=== PATIENT | male | born 1975 | race Two or more races ===

== ENCOUNTER 2020-12-22 13:11 | Outpatient (REF) | payer OTHER, SELFPAY ==
[2020-12-22 13:41] LABS: COVID-19 Test Negative (Negative)
== END 2020-12-22 13:12 | disposition home or self-care (01) ==
LOC: HO.LAB 13:11
PROVIDERS: Visit Provider Internal Medicine
DX: Z20.822 Contact with and (suspected) exposure to COVID-19 (principal)
CPT/HCPCS: 36415; 87635; C9803

== ENCOUNTER 2023-04-18 10:47 | Emergency (ER) | payer OTHER, SELFPAY ==
--- NOTE | ~2023-04-18 | XR_ITS ---
EXAMINATION: XR CERVICAL SPINE CLINICAL INFORMATION: Neck pain radiating to hand. COMPARISON: 02/23/2016 TECHNIQUE: 4 views of the cervical spine were obtained. FINDINGS: The cervical spine is imaged through the C7 vertebral body. Relative straightening of the cervical lordosis. There is 2 mm retrolisthesis of C3 on C4 and of C5 on C6. Vertebral body heights are maintained. Moderate intervertebral disc space narrowing and C3-C4 and C5-C6. Lateral masses are symmetric. Prevertebral soft tissues are within normal limits. XR/XR cervical spine 4V IMPRESSION: Moderate degenerative disc disease C3-C4 and C5-C6.
--- NOTE | ~2023-04-18 | XR_ITS ---
EXAMINATION: XR HUMERUS, LEFT CLINICAL INFORMATION: Pain. COMPARISON: None available. TECHNIQUE: AP and lateral views of the left humerus. FINDINGS: Nkgg-bc-htmzacvn acromioclavicular osteoarthritis is characterized by nonuniform joint space narrowing and marginal osteophytes. There is more mild glenohumeral osteoarthritis with small glenoid osteophytes. No fracture or malalignment. The humerus is intact. No fractures or stress reactions. No osseous lesions. No foci of calcific tendinitis are identified. XR/XR humerus LT IMPRESSION: 1. Rqby-gk-twqirnev acromioclavicular and more mild glenohumeral osteoarthritis. 2. No acute osseous findings.
[2023-04-18 11:10] VITALS: BP 154/109; PULSE 92; RESP 18; TEMP 36.5; O2SAT 98; BMI 29.3
--- NOTE | 2023-04-18 11:13 | ED_ITS ---
HPI - Extremity Problem General Chief complaint: Extremity Injury, Upper Stated complaint: l arm pain Time Seen by Provider: 04/18/23 15:43 Source: patient Mode of arrival: ambulatory Limitations: no limitations History of Present Illness HPI Narrative: This is a 47-year-old male presenting to the emergency department with pain to left arm for the past 3 months worsening, patient contributes this to getting all his 3 COVID boosters in the same arm. Reports pain is 8/10, goes from knee neck and radiates down to left arm. Intermittent numbness and tingling of the left upper extremity. Patient reports pain is so severe sometimes he can not sleep. Thinks that pain starts in the neck with goes down to his left. No chest pain, shortness of breath, fevers, chills, nausea, vomiting, abdominal pain. Related Data Previous Rx's Medication Instructions Recorded cyclobenzaprine 10 mg tablet 10 mg PO BEDTIME PRN muscle spasm 04/18/23 #7 tabs lidocaine 5 % topical patch 1 patch topical DAILY PRN pain #15 04/18/23 ea Allergies Allergy/AdvReac Type Severity Reaction Status Date / Time pineapple [PINEAPPLE] Allergy Unknown UNKNOWN Unverified 04/24/20 14:53 Review of Systems Review of Systems: Constitutional : No Weight loss, No Fever, No Chills, No Fatigue, No Malaise ENT/Mouth : No sore throat, No Rhinorrhea Eyes: No Eye Pain, No Swelling, No Redness Cardiovascular : No Chest Pain, No SOB, No Dyspnea on Exertion, No Orthopnea, No Edema, No Palpitations Respiratory : No Cough, No Sputum, No Wheezing Gastrointestinal : No Nausea, No Vomiting, No Diarrhea, No Constipation, No abdominal Pain, No Hematochezia, No Melena Genitourinary : No Dysuria, No Urinary Frequency, No Hematuria, Musculoskeletal : No joint pain, No Myalgias, No Joint Swelling, + neck pain Skin : No Skin Lesions, No rash Neuro : No Weakness, No Numbness, No Dizziness, No Headache Psych : No Anxiety/Panic, No Depression All other systems reviewed and are negative Yes all other systems are reviewed and are negative [facility] Past Medical History Attestation statement: The following information was validated with the patient. Source: old records reviewed and nursing notes reviewed Social History Social History Advance Directives: No Advance Directives Information Provided: Yes Physical Exam Vital Signs: Vital Signs: Last Vital Signs Temp 97.7 F 04/18/23 11:10 Pulse 92 04/18/23 11:10 Resp 18 04/18/23 11:10 BP 154/109 H 04/18/23 11:10 Pulse Ox 98 04/18/23 11:10 O2 Del Method Room Air 04/18/23 11:10 BMI result Body Mass Index 29.3 vss Appearance: Alert.? Oriented X3.? No acute distress.? Head: Normocephalic, atraumatic, no step-offs or deformities Eyes: Pupils equal, round and reactive to light.? Neck: Normal inspection.? Neck supple.?+ Left-sided cervical paraspinous muscle tenderness on palpation. CVS: Normal heart rate and rhythm.? Pulses normal.? Respiratory: No respiratory distress.? Breath sounds normal.? Abdomen: Soft and nontender.? Skin: Skin warm and dry.? Normal skin color.? Normal skin turgor.? Extremities: No lower extremity edema.? No calf ttp. 5/5 strength to bilateral upper and lower extremities . Normal hand poured concrete wall technician bilaterally. Negative Romberg and pronator drift. Normal sensation distally. 2+ radial pulses equal bilateral. No wrist drop. Capillary refill less than 2 seconds to bilateral upper extremity digits. Back: No midline tenderness, no C-spine tenderness, full range of motion, no CVA tenderness bilaterally Neuro: Oriented X 3.? No motor deficit.? No sensory deficit. CN 2-12 intact Course Course Course Narrative: RME - 47 y/o male presenting to the ER for evaluation of left upper arm pain for the last 3 months. He states he got all 3 COVID boosters in his left arm and he has had pain in the upper arm since. The pain is 8/10, radiates down into the hand w/ numbness and tingling. not sleeping due to the pain. +neck pain as well. No shoulder pain. XR: x-rays, eval in [facility] Reevaluation(s) Reevaluation #1: x-ray of left humerus with mild to moderate AC and more than mild glenohumeral are steer throat is. . No acute osseous findings. X-ray of cervical spine with moderate degenerative disc disease C3-C4 and C5-C6. Patient to be discharged home with muscle relaxers, Lidoderm patch. Educated on ibuprofen and Tylenol. Educated patient on diagnosis and treatment plan, answered all question, patient verbalizes understanding. At this time patient will be discharged home, advised to return with new or worsening symptoms. Educated on worrisome signs and symptoms and when to return. At this time I feel comfortable discharge home. Time: 15:58 Medical Decision Making Medical Decision Making [facility] Narrative: 1556 47-year-old male presents with left-sided neck pain radiating to left upper extremity with intermittent numbness and tingling contributes this to the COVID vaccine. Physical exam With left-sided cervical paraspinous muscle tenderness on palpation. Concerns for cervical radiculopathy versus spinal stenosis versus nerve impingement versus shoulder sprain/ strain. No signs of cervical myelopathy, cord compression, neurovascular compromise, threat to [place]. Unlikely atypical presentation of ACS no chest pain or shortness of breath and patient without significant risk factors. Plan at this time x-ray was ordered from triage. Differential Diagnosis Differential Diagnoses: The differential diagnosis associated with the presentation includes Concerns for cervical radiculopathy versus spinal stenosis versus nerve impingement versus shoulder sprain/ strain. No signs of cervical myelopathy, cord compression, neurovascular compromise, threat to [place]. Unlikely atypical presentation of ACS no chest pain or shortness of breath and patient without significant risk factors. Admission/Observation Consideration of admission/observation: Escalation of care including admission/observation considered unlikely Lab Data [facility] Lab Attestation statement: I reviewed the patient's lab results. Independent Interpretation I performed an independent interpretation of an: Plain X-Ray ( XR/XR humerus LT IMPRESSION: 1. Fnql-rg-auqjcucf acromioclavicular and more mild glenohumeral osteoarthritis. 2. No acute osseous findings. ) Radiology Impression Discussion of test interpretation with radiology: I have reviewed the radiologist's reading. Critical Care Time Critical Care Time Critical Care Time: No Discharge Plan Discharge Clinical Impression: Arm pain, left, Arthritis of shoulder Patient Disposition: Home, Self-Care Instructions: Arm Pain (ED), Swollen Shoulder Joint (ED) Additional Instructions: Take your medications as prescribed. If you were prescribed antibiotics today, it is important that you take your medication to their entirety, do not skip any doses, do not finish them early. Follow-up with your primary care provider this week. Return to the emergency department with new or worsening symptoms. Such as fevers, chills, chest pain, shortness of breath, nausea, vomiting, dizziness, headache, vision changes, lethargy In case of emergency call 911 Apply warm compresses to the area. Ibuprofen every 6 hours, Tylenol every 4 as needed for pain or discomfort. Prescriptions: New cyclobenzaprine 10 mg tablet 10 mg PO BEDTIME PRN (Reason: muscle spasm) Qty: 7 0RF lidocaine 5 % adhesive patch,medicated 1 patch topical DAILY PRN (Reason: pain) Qty: 15 0RF Rx Instructions: leave on most painful area for up to 12 hrs Referrals: Physician,None [Primary Care Provider] - 2 days Stand Alone Forms: Work/School Release
== END 2023-04-18 16:20 | disposition home or self-care (01) ==
PROVIDERS: Emergency Provider Emergency Medicine
DX: M19.012 Primary osteoarthritis, left shoulder (principal); M54.2 Cervicalgia; M25.512 Pain in left shoulder; Z79.899 Other long term (current) drug therapy
CPT/HCPCS: 72050; 73060; 99282; 99283

== ENCOUNTER 2024-08-08 14:22 | Emergency (ER) | payer MEDICARE, SELFPAY ==
[2024-08-08] VITALS (7 sets, daily range): BP systolic 153–186; BP diastolic 94–116; PULSE 76–90; RESP 16–22; TEMP 36.7–36.9; O2SAT 95–100; BMI 28.9
--- NOTE | ~2024-08-08 | CT_ITS ---
CLINICAL HISTORY: pain SBO? CT abdomen and pelvis with contrast Comparison: US - US ABDOMEN LIMITED - 08/08/24 16:[address] - ABD PELVIS WITH CONT 54216 - 02/05/13 23:53 EDT Findings: No consolidation at the lung bases. Unremarkable gallbladder and bladder. Left renal subcentimeter low attenuating lesions which are too small to characterize. The other solid organs are unremarkable. No bowel wall thickening or dilation. A normal appendix is identified. No aneurysm. Mild to moderate calcified atherosclerotic disease. Infrarenal inferior vena cava filter No lymphadenopathy. No ascites. No acute osseous abnormality. Grade 1 anterolisthesis of L5 on S1 secondary to bilateral pars defects. Impression: No acute findings. No small bowel obstruction. This document has been electronically signed by: Heidi Quevedo MD on 08/08/2024 21:44:07
--- NOTE | ~2024-08-08 | US_ITS ---
CLINICAL HISTORY: RUQ pain US GALLBLADDER Comparison: None Findings: The common bile duct measures 4.3 mm. No gallbladder stones or sludge. No gallbladder wall thickening or pericholecystic fluid. There is no sonographic Tran sign. IMPRESSION: 1. No cholelithiasis, acute cholecystitis or common bile ductal dilatation. This document has been electronically signed by: Paola Dutton DO on 08/08/2024 16:58:42
--- OUTSIDE RECORDS SUMMARY | 2024-08-08 14:24 | XMS_ITS | Data Portability ---
Author Organization [place] [facility] [place], [place] - [facility] Address [address] [place] [phone] Care Team Providers Care Mortar Carrier Name Role Phone [facility] Primary Care Provider [phone] HIM [facility] OTHER Assessment No assessment recorded. Plan of Treatment Reminders Order Date Submit Date Provider Last Modified By Organization Details Last Modified Time Details Appointments None recorded. Lab rapid flu (A+B) 2023 [facility], [address] [place] [address], [id number], 4 21:28:18 rapid SARS CoV 2 Ag, QL IA, respiratory specimen 2023 [facility], [address] [place] [address], [id number], 4 21:28:36 Referral None recorded. Procedures None recorded. Surgeries None recorded. Imaging None recorded. Medication Orders albuterol sulfate HFA 90 mcg/actuati on aerosol inhaler 2023 [place] [id number], [address], [place], [phone], 17:18:11 Patient TargetsNo targets recorded. Patient InstructionsNo instructions recorded. Reason for Referral None Reported. Results Created Date Observation Date Name Description Value Unit Range Abnormal Flag Note LastModifiedBy Organization Detail LastModifiedTime Result Notes None recorded. Medical Equipment None Reported. Allergies No known drug allergies Medications Name Sig Start Date Stop Date Status Note LastModified by Organization Details LastModified Time amoxicillin 500 mg capsule TAKE ONE CAPSULE BY MOUTH THREE TIMES DAILY FOR 7 DAYS active Not Available Not Available No t Available albuterol sulfate HFA 90 mcg/actuation aerosol inhaler INHALE 2 PUFFS BY MOUTH EVERY 4 HOURS NEEDED FOR COUGH OR WHEEZING OR SHORTNESS OF BREATH active Not Available Not Available No t Available Vitals Date Recorded Body temperature Respiratory rate Body height Heart rate Body weight Oxygen saturation Oxygen saturation in Arterial blood by Pulse oximetry Systolic blood pressure Diastolic blood pressure Provider Name and Address Organization Details Last Updated DateTime 98 [degF] 14 /min 177.8 cm 86 /min 95764.6 g 99 % 99 % 159 mm[Hg] 92 mm[Hg] Not Available [facility] - production 16:56:46 Social History None recorded. Functional Status None recorded. Mental Status None recorded. Family History Nothing Reported. Medical History No medical history recorded. Past Encounters Encounter ID Performer Location Encounter Start Date Encounter Closed Date Diagnosis/Indication Diagnosis SNOMED-CT Code Diagnosis ICD10 Code [id number] Cayla Stewart MD Main - [facility] [address] [place] [phone] 06/19/2024 16:56:43 06/19/2024 18:58:57 Viral upper respiratory tract infection 036271996 J06.9 Health Concerns Section Related Observation LastModified by Organization Detai ls LastModified Time None Recorded Concern Status LastModified by Organization Details LastModified Time None Recorded Advance Directives Directive None Recorded Payers Encounter Date Sequence Insurance Name Policy Number Policy Gil[place] Covered Member ID Gillette Member ID Guarantor Name 06/19/2024 1 [facility] - DOS ON OR AFTER 2022 - DUAL ELIGIBLE - DETENTION OPTIONS AND ONE CARE (MEDICARE REPLACEMENT/ADV ANTAGE - HMO) Farrukh Shelton [id number] Farrukh Shelton Notes Date Note Type Note Provider Name and Address Organization Details Recorded Time 06/19/2024 text/html [facility] Nurse Triage Notes (Marya Espitia): Reason For Request: Pt reporting just having [facility] nurse at this home and is requesting an asthma pump and inhaler>experiencing SOB>[facility] does not have a PCP, on a waiting list and notes not having a asthma inhaler>[facility] nurse noted the pt had elevated BP this morning Chief Complaints: Asthma PMH: Asthma, Post-Traumatic Stress Disorder (PTSD) Comments: Patient calling in to place a referral, identified via name and . Patient with a few month history of sob, on/off blurry vision and numbness/tingling to his left arm from arthritis in his neck. Patient had a visiting nurse from [facility] come this morning, he was noted to be hypertensive on exam with no history of HTN, BP 162/100 and 164/106, he denies any chest pain, no left jaw, neck, shoulder or arm pain, no unilateral weakness, or worsening numbness/tingling. He denies any headache or dizziness, no n/v, +cough, no phlegm or congestion, noted to have a raspy voice. He states he uses an albuterol inhaler 2-3c a month, however, has been out of his inhaler for a few months, but is currently on a wait list for a new PCP, therefore, has no refills. He would like to be evaluated. Project Management Advisor Organization Information for Daquan Crawford [employer] Name: [facility] Address: [address] [place] [address], [place] [address], Hat Blocker: Jose M Irwin MD [facility] No.: [id number] Project Management Advisor POC Test Results from Daquan Crawford Rapid COVID antigen (16:51:10) COVID: - Rapid influenza antigen (16:51:11) Flu: - .................... .................... .................... .................... .................... .................... .................... . Project Management Advisor Note From Daquan Crawford: Patient alert and oriented answers the door. Patient complains of cold symptoms starting yesterday. Patient complains of nasal congestion, frequent nonproductive cough. Patient states he? s had asthma in the past, has used albuterol inhaler with positive relief. Patient states he does not have an albuterol inhaler at this time and requests a refill from us. Patient states he has also used Advair in the past but discontinued on the advice of his PCP years ago. Patient denies headache, difficulty breathing, nausea, vomiting, diarrhea abdominal pain or any other pain or complaint. Patient reports normal intake and elimination.Patient pink warm dry secondary exam unremarkable. Positive full sentences negative increase work of breathing. Lung sounds clear in all martinez. Abdomen soft nontender negative edema. [facility] will order albuterol inhaler to patient? s local pharmacy. Patient declines offer of albuterol nebulizer at this time.Red flags and patient education discussed. Supportive care next steps and what to expect to discuss. Patient demonstrates understanding of care and plan.Consent uploaded. Patient confirms NKDA. .................... .................... .................... .................... .................... .................... .................... . [facility] Consulted: Cayla Stewart .................... .................... .................... .................... .................... .................... .................... . Disposition: Cheyenne Stewart MD [address] [facility],[address], [place], [phone], [employer] - Confer 06/19/2024 17:37:10
--- OUTSIDE RECORDS SUMMARY | 2024-08-08 14:25 | XMS_ITS | Continuity of Care Document ---
Author Organization [place] [employer] [place], [place] - [facility] Address [address] [place] [phone] Care Team Providers Care Air Pollution Specialist Name Role Phone [facility] Primary Care Provider [facility] OTHER Assessment No assessment recorded. Plan of Treatment Reminders Order Date Submit Date Provider Last Modified By Organization Details Last Modified Time Details Appointments None recorded. Lab rapid flu (A+B) 2023 [facility], [address] [place] [address], [id number], 4 21:28:18 rapid SARS CoV 2 Ag, QL IA, respiratory specimen 2023 [facility], [address] [place] [address], [id number], 4 21:28:36 Referral None recorded. Procedures None recorded. Surgeries None recorded. Imaging None recorded. Medication Orders albuterol sulfate HFA 90 mcg/actuati on aerosol inhaler 2023 [place] [id number], [address], [place], [phone], 17:18:11 Patient TargetsNo targets recorded. Patient InstructionsNo [...] [degF] 14 /min 177.8 cm 86 /min 67028.6 g 99 % 99 % 159 mm[Hg] 92 mm[Hg] Not Available [facility] - production 4 16:56:46 Social History None recorded. Functional Status None recorded. Mental Status None recorded. Family History Nothing Reported. Medical History No medical history recorded. Past Encounters Encounter ID Performer Location Encounter Start Date Encounter Closed Date Diagnosis/Indication Diagnosis SNOMED-CT Code Diagnosis ICD10 Code [id number] Cayla Stewart MD Main - [facility] [address] [place] [phone] 06/19/2024 16:56:43 06/19/2024 18:58:57 Viral upper respiratory tract infection [id number] J06.9 Health Concerns Section Related Observation LastModified by Organization Detai ls LastModified Time None Recorded Concern Status LastModified by Organization Details LastModified Time None Recorded Payers Encounter Date Sequence Insurance Name Policy Number Policy Gil[place] Covered Member ID [place] Member ID Guarantor Name 06/19/2024 1 [facility] - DOS ON OR AFTER 2022 - DUAL ELIGIBLE - FDC OPTIONS AND ONE CARE (MEDICARE REPLACEMENT/ADV ANTAGE - HMO) Farrukh Shelton [id number] Farrukh Shelton Notes Date Note Type Note [...] neck. Patient had a visiting nurse from [facility] come this morning, he was noted to [...] refills. He would like to be evaluated. Cemetery Counselor Organization Information for Daquan Crawford [employer] Legal Name: [facility] Address: [address] [place] [address], [place] [address], Bobbin Collector: Jose M Irwin MD [place] No.: [id number] Cemetery Counselor POC Test Results from Daquan Crawford Rapid COVID antigen (16:51:10) COVID: - Rapid influenza antigen (16:51:11) Flu: - .................... .................... .................... .................... .................... .................... .................... . Cemetery Counselor Note From Ty Daquan: Patient alert and oriented answers the door. [...] all martinez. Abdomen soft nontender negative edema. [facility] [place] albuterol inhaler to patient? s local pharmacy. Patient declines offer of albuterol nebulizer at this time.Red flags and patient education discussed. Supportive care next steps and what to expect to discuss. Patient demonstrates understanding of care and plan.Consent uploaded. Patient confirms NKDA. .................... .................... .................... .................... .................... .................... .................... . [facility] Consulted: Cayla Stewart .................... .................... .................... .................... .................... .................... .................... . Disposition: Cheyenne Stewart MD [address] [facility],[address], [place], [phone], [employer] 06/19/2024 17:37:10
--- NOTE | 2024-08-08 14:55 | ED_ITS ---
HPI - General Adult General Chief complaint: Abdominal Pain Stated complaint: nausea abd pain Time Seen by Provider: 08/08/24 18:18 Source: patient Limitations: language barrier History of Present Illness ED Provider: Ernestina Rodriguez PA-C HPI narrative: 49-year-old male presents with right sided abdominal discomfort x3 days. Pain severe unable to describe is nonradiating. Associated abdominal distention and decreased flatus. Unclear when patient had his last true bowel movement. Associated nausea. Denies postprandial symptoms, active vomiting, diarrhea or fever. No recent cough or cold symptoms. Denies related symptoms. Related Data Previous Rx's ?Medication ?Instructions ?Recorded cyclobenzaprine 10 mg tablet 10 mg PO BEDTIME PRN muscle spasm 04/18/23 #7 tabs lidocaine 5 % topical patch 1 patch topical DAILY PRN pain #15 04/18/23 ea ondansetron HCl 4 mg tablet 4 mg PO Q8H PRN nausea and 08/08/24 vomiting #10 tabs sucralfate 100 mg/mL oral 10 ml PO QID PRN abdominal 08/08/24 suspension (Carafate) discomfort #300 mL Allergies Allergy/AdvReac Type Severity Reaction Status Date / Time pineapple [PINEAPPLE] Allergy Unknown UNKNOWN Verified 08/08/24 15:00 Review of Systems 2 Review of Systems: Yes all other systems are reviewed and are negative Constitutional: Constitutional: Denies fatigue and Denies fever(s) Cardiovascular: Cardiovascular: Denies chest pain and Denies dyspnea Respiratory: Respiratory: Denies cough and Denies dyspnea Gastrointestinal: Gastrointestinal: Reports abdominal pain, Reports constipation, Denies diarrhea, Reports nausea and Denies vomiting Genitourinary: Genitourinary: Denies dysuria Endocrine: Endocrine: Denies fatigue [facility] Past Medical History Attestation statement: The following information was validated with the patient. Social History Social History Advance Directives: No Advance Directives Information Provided: No Do you have a plan to hurt others: No Plan Physical Exam ED Vital Signs: Vital Signs - 24 hr 08/08/24 14:55 08/08/24 18:42 08/08/24 18:53 Temperature 98.4 F Pulse Rate 88 85 Respiratory Rate 20 22 H 17 Blood Pressure 172/113 H 186/116 H Pulse Oximetry 99 100 Oxygen Delivery Method Room Air Room Air 08/08/24 19:06 08/08/24 19:37 08/08/24 20:42 Temperature 98.3 F 98.1 F Pulse Rate 78 90 88 Respiratory Rate 18 18 17 Blood Pressure 179/109 H 165/94 H 159/98 H Pulse Oximetry 99 96 97 Oxygen Delivery Method Room Air Room Air Room Air BMI result Body Mass Index 28.9 Const Other: Alert, appears extremely uncomfortable ill in appearance Orientation/consciousness: patient oriented x3 Resp Effort & Inspection: normal respiratory effort Cardio Other: Normal peripheral perfusion GI Other: Right-sided abdomen with a some degree rigidity, the left is soft, subtle distention, moderate to severe tenderness to palpation with moderate involuntary guarding over right side of the abdomen Skin Other: Warm dry no rash Neuro General: patient oriented x3, no focal motor deficits and CN's II-XI intact bilaterally Psych Other: Calm cooperative Course Course Course Narrative: RME, this is a rapid medical exam performed by Jesus Mitchell please refer to primary provider for complete H&P- 49-year-old male presents for evaluation abdominal pain, nausea and vomiting for the last 3 days. Patient reports most of his pain is in the right upper quadrant, plan for labs, ultrasound of the right upper quadrant. Medications Administered Discontinued Medications Generic Name Dose Route Start Last Admin Trade Name Freq PRN Reason Stop Dose Admin Diatrizoate Meglum/Diatrizoate Sod 30 ml 08/08/24 21:14 08/08/24 21:14 Diatrizoate Meglumine, Sodium 30 Ml Solution PO 08/08/24 21:15 30 ml ONCE ONE Administration Famotidine 20 mg 08/08/24 18:18 08/08/24 18:38 Famotidine/Pf 20 Mg/2 Ml Vial IVPUSH 08/08/24 18:19 20 mg ONCE ONE Administration Sodium Chloride 500 mls @ 500 mls/hr 08/08/24 18:18 08/08/24 20:41 Ns IV 08/08/24 19:17 Infused .Q1H ONE Infusion Iohexol 100 ml 08/08/24 21:13 08/08/24 21:13 Iohexol 350 Mg/Ml 100 Ml Infus..Btl IV 08/08/24 21:14 85 ml ONCE ONE Administration Ketorolac Tromethamine 15 mg 08/08/24 18:18 08/08/24 18:38 Ketorolac Tromethamine 15 Mg/Ml Vial IVPUSH 08/08/24 18:19 15 mg ONCE ONE Administration Morphine Sulfate 8 mg 08/08/24 18:45 08/08/24 18:53 Morphine Sulfate 10 Mg/Ml Cartridge IVPUSH 08/08/24 18:46 8 mg ONCE ONE Administration Protocol Ondansetron HCl 4 mg 08/08/24 18:18 08/08/24 18:38 Ondansetron Hcl 4 Mg/2 Ml Vial IVPUSH 08/08/24 18:19 4 mg ONCE ONE Administration Medical Decision Making Medical Decision Making MDM Narrative: 49-year-old male presents with right sided abdominal discomfort x3 days. Pain severe unable to describe is nonradiating. Associated abdominal distention and decreased flatus. Unclear when patient had his last true bowel movement. Associated nausea. Denies postprandial symptoms, active vomiting, diarrhea or fever. No recent cough or cold symptoms. Denies related symptoms. I have considered the following differential diagnoses: Biliary colic, cholecystitis, gastritis, pancreatitis , bowel obstruction Plan:Given distribution of discomfort I am considering biliary versus gastric etiology as cause for symptoms. Screening labs including LFTs and lipase we will be obtained. Adding an ultrasound of the right upper quadrant. We will be giving fluids Zofran , famotidine, morphine and Toradol for his discomfort. The symptoms could be viral related as well given such illness has been prevalent within the community. Patient also with obstructive symptoms with a concerning exam, I am adding a CT of the abdomen. Screening labs including LFTs and lipase, right upper quadrant ultrasound were obtained from triage. I have independently reviewed the following tests: Labs: No leukocytosis, not anemic, no electrolyte abnormality no elevation of LFTs or lipase Ultrasound right upper quadrant:IMPRESSION: 1. No cholelithiasis, acute cholecystitis or common bile ductal dilatation. This document has been electronically signed by: Paola Dutton DO on 08/08/2024 16:58:42 CT abdomen and pelvis:Findings: No consolidation at the lung bases. Unremarkable gallbladder and bladder. Left renal subcentimeter low attenuating lesions which are too small to characterize. The other solid organs are unremarkable. No bowel wall thickening or dilation. A normal appendix is identified. No aneurysm. Mild to moderate calcified atherosclerotic disease. Infrarenal inferior vena cava filter No lymphadenopathy. No ascites. No acute osseous abnormality. Grade 1 anterolisthesis of L5 on S1 secondary to bilateral pars defects. Impression: No acute findings. No small bowel obstruction. This document has been electronically signed by: Heidi Quevedo MD on 08/08/2024 21:44:07 Patient is just constipated, he could also have underlying viral gastritis. We will send with home care insructions Lab Data 08/08/24 15:44 08/08/24 15:44 Labs: Lab Results 08/08/24 08/08/24 Range/Units 15:44 16:03 WBC 7.6 (4.8-10.8) X10*3/uL RBC 4.97 (4.60-5.80) X10*6/uL Hgb 15.7 (14.0-18.0) g/dl Hct 45.1 (42.0-52.0) % MCV 90.7 (80.0-98.0) fL MCH 31.6 (27.0-33.0) pg MCHC 34.8 (31.0-36.0) g/dl RDW 13.0 (11.0-16.0) % Plt Count 295 (160-400) X10*3/uL MPV 9.3 L (9.4-12.4) fL Immature Gran % (Auto) 0.7 H (0.0-0.4) % Neut % (Auto) 68.7 (45-73) % Lymph % (Auto) 19.3 L (20-40) % [place] % (Auto) 6.7 (2-11) % Eos % (Auto) 3.8 (0-4) % Baso % (Auto) 0.8 (0-2) % Lymph # (Auto) 1.5 (1.2-4.9) X10*3/uL [place] # (Auto) 0.5 (0.1-1.2) X10*3/uL Eos # (Auto) 0.3 (0.0-0.4) X10*3/uL Baso # (Auto) 0.1 (0.0-0.2) X10*3/uL Abs Immat Gran (auto) 0.05 H (0.00-0.03) X10*3/uL Absolute Neuts (auto) 5.2 (2.0-8.3) x10*3/uL Absolute Nucleated RBC 0.000 (0.0-0.012) X10*3/uL Nucleated RBC % (auto) 0.0 (0.0-0.2) /100WBC Sodium 138 (135-145) mmol/L Potassium 3.9 (3.3-5.1) mmol/L Chloride 103 (96-108) mmol/L Carbon Dioxide 25 (22-29) mmol/L Anion Gap 14 (12-20) BUN 14 (9-16) mg/dL Creatinine 1.02 (0.5-1.4) mg/dL Estim Creat Clear Calc 101.3 Estimated GFR > 60 Random Glucose 161 H (60-115) mg/dL Calcium 9.8 (8.4-10.2) mg/dL Total Bilirubin 0.6 (0.0-1.0) mg/dL AST 25 (5-37) U/L ALT 24 (0-40) U/L Alkaline Phosphatase 73 (39-117) U/L Total Protein 7.7 (6.5-8.0) g/dL Albumin 4.5 (3.5-5.0) g/dL Lipase 25 (8-78) U/L Urine Color Yellow Urine Appearance Clear Urine pH 5.5 (5.0-9.0) Ur Specific [place] 1.025 (1.005-1.025) Urine Protein Negative (Neg-Trace) mg/dL Urine Glucose (UA) Negative (Negative) mg/dL Urine Ketones 80 (Negative) mg/dL Urine Blood Negative (Negative) Urine Nitrite Negative (Negative) Ur Leukocyte Esterase Negative (Negative) Urine RBC 0-2 (0-2) /HPF Urine WBC 0-5 (0-5) /HPF Ur Squamous Epith Cells 0-2 (0-2) /HPF Urine Bacteria None Seen (None Seen) Hyaline Casts 0-2 (0-2) /LPF Influenza Type A (PCR) NEGATIVE (Negative) Influenza Type B (PCR) NEGATIVE (Negative) RSV RNA Qual (PCR) NEGATIVE (Negative) SARS-CoV-2 RNA (RT-PCR) NEGATIVE (Negative) Discharge Plan Discharge Clinical Impression: Viral gastritis, Constipation Patient Disposition: Home, Self-Care Instructions: Gastritis (ED), Constipation (ED) Additional Instructions: The CT scan of the abdomen did not reveal an acute infection, you are constipated. All of your screening labs were normal. See home care instructions. You also may have a virus causing your nausea vomiting. Uses Zofran as needed for nausea. Use the Carafate as needed for abdominal discomfort you can use it 30 minutes before meals. In regard to the constipation, you need to use a stool softener such as Colace, this can be purchased [id number]. Take it twice a day. In addition, purchase [id number] MiraLax. This can be taken twice a day until you begin having normal regular bowel movements. Follow up with your primary care provider as needed. Prescriptions: New ondansetron HCl 4 mg tablet 4 mg PO Q8H PRN (Reason: nausea and vomiting) Qty: 10 0RF sucralfate [Carafate] 100 mg/mL suspension 10 ml PO QID PRN (Reason: abdominal discomfort) Qty: 300 0RF Rx Instructions: swish in mouth and swallow; use after food/drink No Action cyclobenzaprine 10 mg tablet 10 mg PO BEDTIME PRN (Reason: muscle spasm) Qty: 7 0RF lidocaine 5 % adhesive patch,medicated 1 patch topical DAILY PRN (Reason: pain) Qty: 15 0RF Rx Instructions: leave on most painful area for up to 12 hrs Print Language: Honduran
[2024-08-08 15:51] LABS: MANUAL DIFF FLAG NO
[2024-08-08 16:13] LABS: Basophils Absolute Auto 0.1 X10*3/uL (0.0-0.2); Basophils Percent Auto 0.8 % (0-2); Eosinophils Absolute Auto 0.3 X10*3/uL (0.0-0.4); Eosinophils Percent Auto 3.8 % (0-4); Hematocrit 45.1 % (42.0-52.0); Hemoglobin 15.7 g/dl (14.0-18.0); Imm Gran Abs Auto 0.05 X10*3/uL (0.00-0.03); Imm Gran Pct Auto 0.7 % (0.0-0.4); Lymphocytes Absolute Auto 1.5 X10*3/uL (1.2-4.9); Lymphocytes Percent Auto 19.3 % (20-40); Mean Corpuscular HGB Conc 34.8 g/dl (31.0-36.0); Mean Corpuscular Hemoglobin 31.6 pg (27.0-33.0); Mean Corpuscular Volume 90.7 fL (80.0-98.0); Mean Platelet Volume 9.3 fL (9.4-12.4); Monocytes Absolute Auto 0.5 X10*3/uL (0.1-1.2); Monocytes Percent Auto 6.7 % (2-11); Neutrophils Absolute Auto 5.2 x10*3/uL (2.0-8.3); Neutrophils Percent Auto 68.7 % (45-73); Platelet Count 295 X10*3/uL (160-400); Red Blood Count 4.97 X10*6/uL (4.60-5.80); White Blood Count 7.6 X10*3/uL (4.8-10.8)
[2024-08-08 16:14] LABS: Appearance Urine Clear; Color Urine Yellow; Glucose Urine UA Negative (Negative); Leukocyte Esterase Urine Negative (Negative); Nitrite Urine Negative (Negative); PH 5.5 (5.0-9.0); Specific Gravity - Urine 1.025 (1.005-1.025); Urine Blood Negative (Negative); Urine Ketones 80 mg/dL (Negative); Urine Protein Negative (Neg-Trace)
[2024-08-08 16:19] LABS: Bacteria Urine None Seen (None Seen); Hyaline Casts Urine 0-2 /LPF (0-2); RBC Urine 0-2 /HPF (0-2); Squamous Epithelial Cell Urine 0-2 /HPF (0-2); WBC Urine 0-5 /HPF (0-5)
[2024-08-08 16:20] LABS: Alanine Aminotransferase 24 U/L (0-40); Albumin Level 4.5 g/dL (3.5-5.0); Anion Gap 14 (12-20); Aspartate Amino Transferase 25 U/L (5-37); Bilirubin Total 0.6 mg/dL (0.0-1.0); Blood Urea Nitrogen 14 mg/dL (9-16); Calcium 9.8 mg/dL (8.4-10.2); Carbon Dioxide 25 mmol/L (22-29); Chloride 103 mmol/L (96-108); Creatinine Clr Calc Pharmacy 101.3; Estimated Glomerular Filt Rate > 60; Glucose Random 161 mg/dL (60-115); Lipase 25 U/L (8-78); Potassium 3.9 mmol/L (3.3-5.1); Sodium 138 mmol/L (135-145); Total Protein 7.7 g/dL (6.5-8.0)
[2024-08-08 16:35] LABS: Influenza A PCR NEGATIVE (Negative); Influenza B PCR NEGATIVE (Negative); Resp Syncy Virus RNA Qual PCR NEGATIVE (Negative); SARS COV2 PCR INHOUSE NEGATIVE (Negative)
[2024-08-08 16:52] LABS: Alkaline Phosphatase 73 U/L (39-117)
[2024-08-08] MEDS: 0.9 % Sodium Chloride 500 ML IV (18:35)
[2024-08-08] MEDS: ondansetron HCL 4 MG/2 ML VIAL IVPUSH (18:38)
[2024-08-08] MEDS: Ketorolac Tromethamine 15 MG/ML VIAL IVPUSH (18:38)
[2024-08-08] MEDS: Famotidine/PF 20 MG/2 ML VIAL IVPUSH (18:38)
[2024-08-08] MEDS: Morphine Sulfate 10 MG/ML CARTRIDGE 8 MG IVPUSH (18:53)
--- NOTE | 2024-08-08 19:09 | MHC.EDTECH ---
This tech took over care of pt at 1900,rounded and introduced self to pt,vitals taken,BP is elevated 179/109,RN made aware,call bocanegra in reach
--- NOTE | 2024-08-08 19:49 | MHC.EDTECH ---
Patient is drinking water at this time,pt tolerated well, BP is 165/94,RN aware
[2024-08-08] MEDS: iohexoL 350 MG/ML 100 ML INFUS..BTL IV (21:13)
[2024-08-08] MEDS: Diatrizoate Meglumine, Sodium 30 ML SOLUTION PO (21:14)
== END 2024-08-08 23:11 | disposition home or self-care (01) ==
PROVIDERS: Physician Assistant; Emergency Provider Emergency Medicine
DX: A08.4 Viral intestinal infection, unspecified (principal); K59.00 Constipation, unspecified; R11.2 Nausea with vomiting, unspecified; R10.11 Right upper quadrant pain; Z03.818 Encounter for observation for suspected exposure to other biological agents ruled out
CPT/HCPCS: 0241U; 36415; 74177; 76705; 80053; 81001; 83690; 85025; 96361; 96374; 96375; 99284; J1885; J2270; J2405; Q9967

== ENCOUNTER → 2024-08-08 14:55 | Outpatient (BNV) | payer OTHER, SELFPAY | PROVIDERS: Visit Provider Radiology Diagnostic Radiology | DX: R10.11 Right upper quadrant pain (principal); Z95.828 Presence of other vascular implants and grafts | CPT/HCPCS: 74177; 76705 ==

== ENCOUNTER 2024-08-10 18:33 | Emergency (ER) | payer MEDICARE, SELFPAY ==
[2024-08-10 18:40] VITALS: BP 158/114; PULSE 74; O2SAT 99
[2024-08-10 18:54] VITALS: BP 167/109; PULSE 86; RESP 20; TEMP 36.4; O2SAT 99; BMI 28.8
--- NOTE | 2024-08-10 18:56 | ED.GENADULT ---
HPI - General Adult General Chief complaint: Abdominal Pain Stated complaint: 05/17 abd pain CONSTIPATION, DIZZY, TACHYACHARDIC Related Data Previous Rx's ?Medication ?Instructions ?Recorded cyclobenzaprine 10 mg tablet 10 mg PO BEDTIME PRN muscle spasm 04/18/23 #7 tabs lidocaine 5 % topical patch 1 patch topical DAILY PRN pain #15 04/18/23 ea ondansetron HCl 4 mg tablet 4 mg PO Q8H PRN nausea and 08/08/24 vomiting #10 tabs sucralfate 100 mg/mL oral 10 ml PO QID PRN abdominal 08/08/24 suspension (Carafate) discomfort #300 mL Allergies Allergy/AdvReac Type Severity Reaction Status Date / Time pineapple [PINEAPPLE] Allergy Unknown UNKNOWN Verified 08/10/24 18:58 [facility] Social History Social History Advance Directives: No Advance Directives Information Provided: No Do you have a plan to hurt others: No Plan Physical Exam ED Vital Signs: BMI result Body Mass Index 28.8 Course Course Course Narrative: This is a rapid medical exam performed by Jammie Jacobsen NP: Additional HPI, ROS, PE not included below will be deferred to primary provider. Patient is a 49-year-old male presenting with RUQ abdominal pain. Seen here on 08/08, diagnosed with gastritis and constipation. Had CT, U/S. Pain intermittent. Has been taking sucralfate with little relief. Patient is awake, A+Ox3, in no acute distress, lungs clear throughout, RRR, abdomen soft, nontender, ambulating independently with steady gait. Plan: labs Medical Decision Making Lab Data 08/10/24 19:21 08/10/24 19:21 Labs: Lab Results 08/10/24 Range/Units 19:21 WBC 6.8 (4.8-10.8) X10*3/uL RBC 4.93 (4.60-5.80) X10*6/uL Hgb 15.5 (14.0-18.0) g/dl Hct 43.9 (42.0-52.0) % MCV 89.0 (80.0-98.0) fL MCH 31.4 (27.0-33.0) pg MCHC 35.3 (31.0-36.0) g/dl RDW 12.5 (11.0-16.0) % Plt Count 317 (160-400) X10*3/uL MPV 9.5 (9.4-12.4) fL Immature Gran % (Auto) 0.9 H (0.0-0.4) % Neut % (Auto) 68.7 (45-73) % Lymph % (Auto) 22.5 (20-40) % [place] % (Auto) 6.9 (2-11) % Eos % (Auto) 0.4 (0-4) % Baso % (Auto) 0.6 (0-2) % Lymph # (Auto) 1.5 (1.2-4.9) X10*3/uL [place] # (Auto) 0.5 (0.1-1.2) X10*3/uL Eos # (Auto) 0.0 (0.0-0.4) X10*3/uL Baso # (Auto) 0.0 (0.0-0.2) X10*3/uL Abs Immat Gran (auto) 0.06 H (0.00-0.03) X10*3/uL Absolute Neuts (auto) 4.7 (2.0-8.3) x10*3/uL Absolute Nucleated RBC 0.000 (0.0-0.012) X10*3/uL Nucleated RBC % (auto) 0.0 (0.0-0.2) /100WBC PT 11.9 (10.9-12.4) SEC INR 1.0 (0.9-1.1) Sodium 139 (135-145) mmol/L Potassium 3.7 (3.3-5.1) mmol/L Chloride 108 (96-108) mmol/L Carbon Dioxide 22 (22-29) mmol/L Anion Gap 13 (12-20) BUN 6 L (9-16) mg/dL Creatinine 0.85 (0.5-1.4) mg/dL Estim Creat Clear Calc 121.5 Estimated GFR > 60 Random Glucose 111 (60-115) mg/dL Calcium 9.3 (8.4-10.2) mg/dL Magnesium 2.2 (1.6-2.6) mg/dL Total Bilirubin 0.9 (0.0-1.0) mg/dL AST 17 (5-37) U/L ALT 16 (0-40) U/L Alkaline Phosphatase 64 (39-117) U/L Total Protein 7.5 (6.5-8.0) g/dL Albumin 4.5 (3.5-5.0) g/dL Lipase 17 (8-78) U/L Discharge Plan Discharge Clinical Impression: Eloped from emergency department Patient Disposition: Left W/O Completing Treatment Prescriptions: No Action ondansetron HCl 4 mg tablet 4 mg PO Q8H PRN (Reason: nausea and vomiting) Qty: 10 0RF sucralfate [Carafate] 100 mg/mL suspension 10 ml PO QID PRN (Reason: abdominal discomfort) Qty: 300 0RF Rx Instructions: swish in mouth and swallow; use after food/drink cyclobenzaprine 10 mg tablet 10 mg PO BEDTIME PRN (Reason: muscle spasm) Qty: 7 0RF lidocaine 5 % adhesive patch,medicated 1 patch topical DAILY PRN (Reason: pain) Qty: 15 0RF Rx Instructions: leave on most painful area for up to 12 hrs Discharge Date/Time: 08/10/24 23:12
[2024-08-10 19:24] LABS: MANUAL DIFF FLAG NO
[2024-08-10 19:36] LABS: Prothrombin Time 11.9 SEC (10.9-12.4)
[2024-08-10 19:40] LABS: Alanine Aminotransferase 16 U/L (0-40); Albumin Level 4.5 g/dL (3.5-5.0); Alkaline Phosphatase 64 U/L (39-117); Anion Gap 13 (12-20); Aspartate Amino Transferase 17 U/L (5-37); Bilirubin Total 0.9 mg/dL (0.0-1.0); Blood Urea Nitrogen 6 mg/dL (9-16); Calcium 9.3 mg/dL (8.4-10.2); Carbon Dioxide 22 mmol/L (22-29); Chloride 108 mmol/L (96-108); Creatinine Clr Calc Pharmacy 121.5; Estimated Glomerular Filt Rate > 60; Glucose Random 111 mg/dL (60-115); Lipase 17 U/L (8-78); Magnesium 2.2 mg/dL (1.6-2.6); Potassium 3.7 mmol/L (3.3-5.1); Sodium 139 mmol/L (135-145); Total Protein 7.5 g/dL (6.5-8.0)
[2024-08-10 19:52] LABS: Basophils Percent Auto 0.6 % (0-2); Eosinophils Percent Auto 0.4 % (0-4); Hematocrit 43.9 % (42.0-52.0); Hemoglobin 15.5 g/dl (14.0-18.0); Imm Gran Abs Auto 0.06 X10*3/uL (0.00-0.03); Imm Gran Pct Auto 0.9 % (0.0-0.4); Lymphocytes Absolute Auto 1.5 X10*3/uL (1.2-4.9); Lymphocytes Percent Auto 22.5 % (20-40); Mean Corpuscular HGB Conc 35.3 g/dl (31.0-36.0); Mean Corpuscular Hemoglobin 31.4 pg (27.0-33.0); Mean Platelet Volume 9.5 fL (9.4-12.4); Monocytes Absolute Auto 0.5 X10*3/uL (0.1-1.2); Monocytes Percent Auto 6.9 % (2-11); Neutrophils Absolute Auto 4.7 x10*3/uL (2.0-8.3); Neutrophils Percent Auto 68.7 % (45-73); Platelet Count 317 X10*3/uL (160-400); Red Blood Count 4.93 X10*6/uL (4.60-5.80); Red Cell Distribution Width 12.5 % (11.0-16.0); White Blood Count 6.8 X10*3/uL (4.8-10.8)
== END 2024-08-10 23:12 | disposition left against medical advice (07) ==
LOC: HO.ED 23:11
PROVIDERS: Registered Nurse Emergency; Emergency Provider Emergency Medicine
DX: R10.11 Right upper quadrant pain (principal); K59.00 Constipation, unspecified; K29.70 Gastritis, unspecified, without bleeding
CPT/HCPCS: 36415; 80053; 83690; 83735; 85025; 85610; 99281; 99283

== ENCOUNTER 2025-02-09 19:19 | Emergency (ER) | payer MEDICARE, SELFPAY ==
[2025-02-09 19:21] VITALS: BP 146/91; PULSE 88; O2SAT 99
[2025-02-09 19:23] VITALS: BP 161/110; PULSE 99; RESP 18; TEMP 36.6; O2SAT 95; BMI 27.7
--- NOTE | 2025-02-09 19:23 | ED.OVERDOSE ---
HPI - Overdose General Chief Complaint: Overdose Stated Complaint: OD, lethargic, narcan given Time Seen by Provider: 02/09/25 19:23 Source: patient Mode of arrival: EMS Limitations: no limitations History of Present Illness ED Provider: HPI Narrative: Patient apparently smoking marijuana and tried some other drugs likely fentanyl with his friend for the 1st time according to patient. Friends called the EMS when patient's became unresponsive PD gave him 4 mg Narcan each nostril without much response EMS gave him 2 mg narc IM with good response complaint: accidental overdose Related Data Previous Rx's ?Medication ?Instructions ?Recorded cyclobenzaprine 10 mg tablet 10 mg PO BEDTIME PRN muscle spasm 04/18/23 #7 tabs lidocaine 5 % topical patch 1 patch topical DAILY PRN pain #15 04/18/23 ea ondansetron HCl 4 mg tablet 4 mg PO Q8H PRN nausea and 08/08/24 vomiting #10 tabs sucralfate 100 mg/mL oral 10 ml PO QID PRN abdominal 08/08/24 suspension (Carafate) discomfort #300 mL Allergies Allergy/AdvReac Type Severity Reaction Status Date / Time pineapple (PINEAPPLE) Allergy Unknown UNKNOWN Verified 02/09/25 19:28 Review of Systems Review of Systems: Yes all other systems are reviewed and are negative PMFSH Social History Social History Smoked in Last 30 Days: Yes Use of substances other than those prescribed or required for medical reasons: Yes Substance Use Type: Crack/Cocaine Advance Directives: No Advance Directives Information Provided: No Do you have a plan to hurt others: No Plan Physical Exam Vital Signs: Vital Signs: Last Vital Signs Temp 98.5 F 02/09/25 21:40 Pulse 88 02/09/25 21:40 Resp 16 02/09/25 21:40 BP 144/103 H 02/09/25 21:40 Pulse Ox 98 02/09/25 21:40 O2 Del Method Room Air 02/09/25 21:40 BMI result Body Mass Index 27.7 Appearance: Alert. Oriented X3. No acute distress. Eyes: no pallor or icterus ENT: Pharynx normal Oral Mucosa moist tympanic membrane intact no erythema, Neck: Normal inspection. Neck supple. CVS: Normal heart rate and rhythm. Pulses normal. Respiratory: No respiratory distress. Equal air entry bilateral, no wheezing/rales/rhonchi Abd: soft, not tender Skin: Skin warm and dry. Normal skin color. Normal skin turgor. Extremities: No lower extremity edema, no calf tenderness Neuro: Oriented X 3. Medical Decision Making Medical Decision Making MDM Narrative: Patient's incidental opiate overdose does not want urine to be tested does not want any detox help will discharge patient home patient ambulatory with stable vitals at the time of discharge patient has refused to give us a urine sample to tested Discharge Plan Discharge Clinical Impression: Drug overdose Patient Disposition: Home, Self-Care Instructions: Opioid Use Disorder (ED) Additional Instructions: SOpiate use disorder You were seen in our Emergency Department today for treatment of opiate use disorder. You may have been dosed with medication for opiate use disorder (MOUD) in the form of suboxone or methadone. You may experience feeling some withdrawal symptoms and this is normal. The? dose in the Emergency Department is a starting dose and meant to be titrated up once you follow up with a clinic. Please do not feel discouraged, it is a process. The nurse has reviewed with you where to follow up and what information to bring with you, to continue treatment. You also may have been given naloxone (narcan) to take home with you. This medication is used to potentially treat opiate overdose. If you decide you want to stop or cut down on how much you?re using, you can call or walk into our outpatient Addiction Treatment office: [facility] (M-F 9am-5p) [address] [place] [address], [phone] You may have been provided with safer injection?items, please take time to take care of YOU and your health. Use new supplies whenever possible to lessen the chances of infections and other illnesses.? ?If you need more supplies, please go [facility],? [address], [place] you can call or text to coordinate delivery of safer supplies. You were also provided a list of several treatment providers in the area.? If you experience any worsening symptoms you cannot control please return to the ED or call 911. Please follow up at your next appointment. Things to look out for are fevers, chest pain, shortness of breath, severe pain, dizziness, fainting or any other concerns. top using drugs and follow up with detox Prescriptions: No Action ondansetron HCl 4 mg tablet 4 mg PO Q8H PRN (Reason: nausea and vomiting) Qty: 10 0RF sucralfate [Carafate] 100 mg/mL suspension 10 ml PO QID PRN (Reason: abdominal discomfort) Qty: 300 0RF Rx Instructions: swish in mouth and swallow; use after food/drink cyclobenzaprine 10 mg tablet 10 mg PO BEDTIME PRN (Reason: muscle spasm) Qty: 7 0RF lidocaine 5 % adhesive patch,medicated 1 patch topical DAILY PRN (Reason: pain) Qty: 15 0RF Rx Instructions: leave on most painful area for up to 12 hrs Interventions: ED Discharge Assessment Last Done: 02/09/25 21:40 Discharge Date/Time: 02/09/25 21:41 Print Language: Estonian
[2025-02-09 21:39] VITALS: BP 144/103; PULSE 88; RESP 16; TEMP 36.9; O2SAT 98
[2025-02-09 21:40] VITALS: BP 144/103; PULSE 88; RESP 16; TEMP 36.9; O2SAT 98
== END 2025-02-09 21:41 | disposition home or self-care (01) ==
PROVIDERS: Emergency Provider Internal Medicine
DX: T40.2X1A Poisoning by other opioids, accidental (unintentional), initial encounter (principal); Y92.89 Other specified places as the place of occurrence of the external cause; F11.90 Opioid use, unspecified, uncomplicated
CPT/HCPCS: 99284